=== PATIENT | male | born 1975 | race African-American/Black ===

== ENCOUNTER 2018-02-10 14:55 | Emergency (ER) | payer SELFPAY ==
--- NOTE | 2018-02-10 16:10 | RAD REPORT ---
EXAM DESCRIPTION: RAD - Knee Left 3 View - 02/10/2018 4:03 pm CLINICAL HISTORY: Left knee pain FINDINGS: No fracture or dislocation is seen. A large spur extends off of the anterior superior aspect of the patella
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
== END 2018-02-10 16:53 | disposition home or self-care (01) ==
LOC: ER 14:55
DX: T65.891A Toxic effect of other specified substances, accidental (unintentional), initial encounter (principal); H10.213 Acute toxic conjunctivitis, bilateral; S83.92XA Sprain of unspecified site of left knee, initial encounter; Y04.0XXA Assault by unarmed brawl or fight, initial encounter; Y92.9 Unspecified place or not applicable
CPT/HCPCS: 99283

== ENCOUNTER 2020-02-08 13:27 | Emergency (ER) | payer SELFPAY ==
--- NOTE | 2020-02-08 14:54 | ER ---
Nurse's Notes [facility] Name: Gonsalo Chambers Age: 44 yrs Sex: Male : 1975 Arrival Date: 02/08/2020 Time: 13:28 Bed 13 Private MD: Diagnosis: Disturbances in tooth eruption Presentation: 02/07 13:34 Chief complaint: Patient states: Right lower jaw tooth/gum pain for 3 days. No fever. ll1 Coronavirus screen: Patient denies a cough. Patient denies shortness of breath or difficulty breathing. Patient denies measured and/or subjective temperature greater than 100.4F prior to today's visit. Patient denies travel on a cruise ship or to a country the [facility] currently lists as an affected area. Patient denies contact with known and/or suspected case of COVID-19. Proceed with normal triage. Ebola Screen: Patient denies travel to an Ebola-affected area in the 21 days before illness onset. Initial Sepsis Screen: Does the patient meet any 2 criteria? No. Patient's initial sepsis screen is negative. Risk Assessment: Do you want to hurt yourself or someone else? Patient reports no desire to harm self or others. Onset of symptoms was February 06, 2020. 13:34 Method Of Arrival: Ambulatory ll1 13:34 Acuity: GOLDIE 5 ll1 Triage Assessment: 13:39 General: Appears uncomfortable, well groomed, Behavior is calm, cooperative. Pain: ks7 Complains of pain in mouth dental decay, R lower molar. EENT: Reports pain in right cheek, R lower molar dental decay. Historical: - Allergies: 13:35 No Known Allergies; ll1 - PSHx: 13:35 None; ll1 - Immunization history:: Adult Immunizations up to date. - Social history:: Smoking status: Patient reports the use of cigarette tobacco products, denies chronic smoking, but will smoke occasionally, Patient/guardian denies using alcohol, street drugs. Screenin:43 Abuse screen: Denies threats or abuse. Nutritional screening: No deficits noted. ks7 Tuberculosis screening: No symptoms or risk factors identified. Fall Risk None identified. Assessment: 13:43 General: Appears uncomfortable. EENT: Dental caries noted in lower right second molar ks7 (#31) and lower right third molar (#32). Vital Signs: 13:34 BP 123 / 75; Pulse 70; Resp 17; Temp 98.2; Pulse Ox 100% ; Pain 10/10; ll1 13:39 BP 123 / 75; Pulse 70; Resp 17; Temp 98.2; Pulse Ox 100% on R/A; Pain 8/10; ks7 15:14 Temp 97.9(TE); Pain 5/10; ks7 15:14 Temp 97.9; ks7 ED Course: 13:28 Patient arrived in ED. fj1 13:34 Annie Lockhart, RN is Primary Nurse. ks7 13:35 Triage completed. ll1 13:36 Arm band placed on Patient placed in an exam room, on a stretcher. ll1 13:43 Patient has correct armband on for positive identification. Bed in low position. Call ks7 light in reach. Side rails up X2. 13:43 No provider procedures requiring assistance completed. Patient did not have IV access ks7 during this emergency room visit. 13:56 [facility] snw 13:56 Bryn Hanson MD is Attending Physician. snw Administered Medications: 15:12 Drug: TORadol 30 mg Route: IM; Site: left deltoid; ks7 15:14 Follow up: Temp 97.9 ks7 15:12 Drug: Amoxicillin 500 mg Route: PO; ks7 15:14 Follow up: Temp 97.9 Temporal; Pain 5/10 Adult ks7 Outcome: 14:53 Discharge ordered by MD. snw 15:13 Discharged to home ambulatory. ks7 15:13 Condition: stable 15:13 Discharge instructions given to patient, Instructed on discharge instructions, medication usage. 15:13 Instructed on Demonstrated understanding of instructions, medications. 15:15 Patient left the ED. ks7 Signatures: Yulia Frey FNP-C CUTTING INSPECTOR-Csnw Mark Meier fj1 Antonia Mueller RN RN 1 Annie Lockhart, JOHN RN ks7
--- NOTE | 2020-02-08 14:54 | EDPHYS ---
Physician Documentation [facility] Name: Gonsalo Chambers Age: 44 yrs Sex: Male : 1975 Arrival Date: 02/08/2020 Time: 13:28 Bed 13 Private MD: ED Physician Bryn Hanson HPI: 02/07 16:59 This 44 yrs old Black Male presents to ER via Ambulatory with complaints of Toothache. snw 16:59 The patient presents with swelling. The problem is located in the lower right third snw molar. Onset: The symptoms/episode began/occurred gradually. Duration: The symptoms are continuous. Associated signs and symptoms: Pertinent positives: pain. Severity of symptoms: At their worst the symptoms were severe. The patient has not experienced similar symptoms in the past. The patient has not recently seen a physician. Historical: - Allergies: 13:35 No Known Allergies; ll1 - PSHx: 13:35 None; ll1 - Immunization history:: Adult Immunizations up to date. - Social history:: Smoking status: Patient reports the use of cigarette tobacco products, denies chronic smoking, but will smoke occasionally, Patient/guardian denies using alcohol, street drugs. ROS: 16:56 Constitutional: Negative for fever, chills, and weight loss, Eyes: Negative for injury, snw pain, redness, and discharge, Neck: Negative for injury, pain, and swelling, Cardiovascular: Negative for chest pain, palpitations, and edema, Respiratory: Negative for shortness of breath, cough, wheezing, and pleuritic chest pain, Abdomen/GI: Negative for abdominal pain, nausea, vomiting, diarrhea, and constipation, Back: Negative for injury and pain, : Negative for injury, bleeding, discharge, and swelling, MS/Extremity: Negative for injury and deformity, Skin: Negative for injury, rash, and discoloration, Neuro: Negative for headache, weakness, numbness, tingling, and seizure, Psych: Negative for depression, anxiety, suicide ideation, homicidal ideation, and hallucinations. 16:56 ENT: Positive for dental pain, of the lower right second molar and lower right third molar. Exam: 16:56 Constitutional: This is a well developed, well nourished patient who is awake, alert, snw and in no acute distress. Head/Face: Normocephalic, atraumatic. Eyes: Pupils equal round and reactive to light, extra-ocular motions intact. Lids and lashes normal. Conjunctiva and sclera are non-icteric and not injected. Cornea within normal limits. Periorbital areas with no swelling, redness, or edema. Neck: Trachea midline, no thyromegaly or masses palpated, and no cervical lymphadenopathy. Supple, full range of motion without nuchal rigidity, or vertebral point tenderness. No Meningismus. Chest/axilla: Normal chest wall appearance and motion. Nontender with no deformity. No lesions are appreciated. Cardiovascular: Regular rate and rhythm with a normal S1 and S2. No gallops, murmurs, or rubs. Normal PMI, no JVD. No pulse deficits. Respiratory: Lungs have equal breath sounds bilaterally, clear to auscultation and percussion. No rales, rhonchi or wheezes noted. No increased work of breathing, no retractions or nasal flaring. Abdomen/GI: Soft, non-tender, with normal bowel sounds. No distension or tympany. No guarding or rebound. No evidence of tenderness throughout. Back: No spinal tenderness. No costovertebral tenderness. Full range of motion. Skin: Warm, dry with normal turgor. Normal color with no rashes, no lesions, and no evidence of cellulitis. MS/ Extremity: Pulses equal, no cyanosis. Neurovascular intact. Full, normal range of motion. Neuro: Awake and alert, GCS 15, oriented to person, place, time, and situation. Cranial nerves II-XII grossly intact. Motor strength 5/5 in all extremities. Sensory grossly intact. Cerebellar exam normal. Normal gait. Psych: Awake, alert, with orientation to person, place and time. Behavior, mood, and affect are within normal limits. 16:56 ENT: External ear(s): are unremarkable, TM's: are normal, Nose: is normal, Mouth: is normal, Dental exam: pain, that is moderate, specifically in the lower right third molar (#32), tooth not completely erupted, + edema over tooth. Vital Signs: 13:34 BP 123 / 75; Pulse 70; Resp 17; Temp 98.2; Pulse Ox 100% ; Pain 10/10; ll1 13:39 BP 123 / 75; Pulse 70; Resp 17; Temp 98.2; Pulse Ox 100% on R/A; Pain 8/10; ks7 15:14 Temp 97.9(TE); Pain 5/10; ks7 15:14 Temp 97.9; ks7 MDM: 14:53 Patient medically screened. snw 16:58 Data reviewed: vital signs, nurses notes. Data interpreted: Pulse oximetry: on room air snw is 100 %. Interpretation: normal. Counseling: I had a detailed discussion with the patient and/or guardian regarding: the historical points, exam findings, and any diagnostic results supporting the discharge/admit diagnosis, the need for outpatient follow up, to return to the emergency department if symptoms worsen or persist or if there are any questions or concerns that arise at home. Special discussion: Based on the history and exam findings, there is no indication for further emergent testing or inpatient evaluation. I discussed with the patient/guardian the need to see the primary care provider for further evaluation of the symptoms. Administered Medications: 15:12 Drug: TORadol 30 mg Route: IM; Site: left deltoid; ks7 15:14 Follow up: Temp 97.9 ks7 15:12 Drug: Amoxicillin 500 mg Route: PO; ks7 15:14 Follow up: Temp 97.9 Temporal; Pain 5/10 Adult ks7 Disposition: 19:09 Co-signature as Attending Physician, Bryn Hanson MD I agree with the assessment and kdr plan of care. Disposition: 02/08/20 14:53 Discharged to Home. Impression: Disturbances in tooth eruption. - Condition is Stable. - Discharge Instructions: Dental Caries, Adult, Dental Pain, Impacted Molar, Diet and Dental Disease, Preventive Dental Care, Adult. - Prescriptions for Amoxicillin 500 mg Oral Capsule - take 1 capsule by ORAL route every 8 hours for 10 days; 30 tablet. Mobic 7.5 mg Oral Tablet - take 1 tablet by ORAL route once daily take with food; 20 tablet. - Medication Reconciliation Form, Thank You Letter, Antibiotic Education, Prescription Opioid Use form. - Follow up: Emergency Department; When: As needed; Reason: Worsening of condition. Follow up: Private Physician; When: 1 - 2 days; Reason: Recheck today's complaints, Continuance of care, Re-evaluation by your physician. Signatures: Bryn Hanson MD MD kdr Waters, Shelly, CLASSIFIED ADVERTISING MANAGER-C CLASSIFIED ADVERTISING MANAGER-Antonia Oviedo, RN RN ll1 Annie Lockhart RN RN ks7 Corrections: (The following items were deleted from the chart) 15:15 14:53 02/08/2020 14:53 Discharged to Home. Impression: Disturbances in tooth eruption. ks7 Condition is Stable. Forms are Medication Reconciliation Form, Thank You Letter, Antibiotic Education, Prescription Opioid Use. Follow up: Emergency Department; When: As needed; Reason: Worsening of condition. Follow up: Private Physician; When: 1 - 2 days; Reason: Recheck today's complaints, Continuance of care, Re-evaluation by your physician. snw
[2020-02-08] MEDS ORDERED: AMOXICILLIN TRIHYDR 250 MG CAP ONE (15:14)
[2020-02-08] MEDS ORDERED: KETOROLAC 30 MG/ML INJ ONE (15:14)
[2020-02-08 15:20] VITALS: BP 123/75; O2SAT 100
[2020-02-08 15:23] VITALS: TEMP 97.9
== END 2020-02-08 15:15 | disposition home or self-care (01) ==
LOC: ER 13:27
DX: K00.6 Disturbances in tooth eruption (principal); Z72.0 Tobacco use
CPT/HCPCS: 96372; 99283

== ENCOUNTER 2021-01-10 10:18 | Emergency (ER) | payer SELFPAY ==
--- NOTE | 2021-01-10 10:53 | ER ---
Nurse's Notes [facility] Name: Gonsalo Chambers Age: 45 yrs Sex: Male : 1975 Arrival Date: 01/10/2021 Time: 10:21 Bed 8 Private MD: Diagnosis: Dental caries Presentation: 01/10 10:30 Chief complaint: Left upper molar pain that radiates to jaw and face x 21 days. hb Coronavirus screen: At this time, the client does not indicate any symptoms associated with coronavirus-19. Ebola Screen: No symptoms or risks identified at this time. Initial Sepsis Screen: Does the patient meet any 2 criteria? No. Patient's initial sepsis screen is negative. Does the patient have a suspected source of infection? No. Patient's initial sepsis screen is negative. Risk Assessment: Do you want to hurt yourself or someone else? Patient reports no desire to harm self or others. Onset of symptoms was January 09, 2021. 10:30 Method Of Arrival: Ambulatory hb 10:30 Acuity: GOLDIE 4 hb Historical: - Allergies: 10:31 No Known Allergies; hb - Home Meds: 10:31 None [Active]; hb - PMHx: 10:31 Asthma; hb - PSHx: 10:31 None; hb - Immunization history:: Client reports having NOT received the Covid vaccine. - Family history:: not pertinent. - Social history:: Smoking status: unknown. Screenin:09 Abuse screen: Denies threats or abuse. Denies injuries from another. Nutritional ph screening: No deficits noted. Tuberculosis screening: No symptoms or risk factors identified. Fall Risk None identified. Assessment: 11:07 General: Appears in no apparent distress. uncomfortable, well groomed, Behavior is ph calm, cooperative, appropriate for age. Pain: Complains of pain in left zygomatic area. Neuro: Level of Consciousness is awake, alert, obeys commands, Oriented to person, place, time, situation. Cardiovascular: Capillary refill < 3 seconds in bilateral fingers Patient's skin is warm and dry. Respiratory: Airway is patent Respiratory effort is even, unlabored, Respiratory pattern is regular, symmetrical. EENT: Poor dentition noted. Derm: Skin is intact, Skin is pink, warm \T\ dry. Musculoskeletal: Circulation, motion, and sensation intact. Range of motion: intact in all extremities. 11:10 Reassessment: Pt provided w/ information about [facility] for follow ph up. Vital Signs: 10:30 BP 128 / 77; Pulse 63; Resp 16; Temp 97.7; Pulse Ox 100% on R/A; Pain 10/10; hb ED Course: 10:21 Patient arrived in ED. ds1 10:31 Triage completed. hb 10:31 Arm band placed on. hb 10:33 Tressa Plata MD is Attending Physician. ma2 10:35 Ara Hebert, RN is Primary Nurse. ph 11:09 Patient has correct armband on for positive identification. Bed in low position. Call ph light in reach. Side rails up X 1. Pulse ox on. NIBP on. Door closed. Noise minimized. 11:09 No provider procedures requiring assistance completed. Patient did not have IV access ph during this emergency room visit. Administered Medications: 10:50 Drug: Augmentin (Amoxicillin-Clavulanate) 875 mg Route: PO; ph 11:11 Follow up: Response: No adverse reaction ph 10:55 Drug: TORadol (ketorolac) 60 mg Route: IM; Site: right deltoid; ph 11:11 Follow up: Response: No adverse reaction ph Outcome: 10:52 Discharge ordered by . ma2 11:10 Discharged to home ambulatory. ph 11:10 Condition: good 11:10 Discharge instructions given to patient, Instructed on discharge instructions, follow up and referral plans. medication usage, Demonstrated understanding of instructions, follow-up care, medications, Prescriptions given X 2. 11:16 Patient left the ED. ph Signatures: Renetta Nath ds1 Ara Hebert RN RN Aide Donnelly RN RN Tressa Plata MD MD ma2
--- NOTE | 2021-01-10 10:53 | EDPHYS ---
Physician Documentation [facility] Name: Gonsalo Chambers Age: 45 yrs Sex: Male : 1975 Arrival Date: 01/10/2021 Time: 10:21 Bed 8 Private MD: ED Physician Tressa Plata HPI: 01/10 10:50 This 45 yrs old Black Male presents to ER via Ambulatory with complaints of Toothache. ma2 10:50 The patient presents with pain. Onset: The symptoms/episode began/occurred gradually, 2 ma2 day(s) ago. Associated signs and symptoms: Pertinent negatives: fever, nausea, swelling. Severity of symptoms: At their worst the symptoms were mild, in the emergency department the symptoms are unchanged. The patient has not experienced similar symptoms in the past. Historical: - Allergies: 10:31 No Known Allergies; hb - Home Meds: 10:31 None [Active]; hb - PMHx: 10:31 Asthma; hb - PSHx: 10:31 None; hb - Immunization history:: Client reports having NOT received the Covid vaccine. - Family history:: not pertinent. - Social history:: Smoking status: unknown. ROS: 10:50 All other systems are negative. ma2 Exam: 10:50 Constitutional: This is a well developed, well nourished patient who is awake, alert, ma2 and in no acute distress. Head/Face: Normocephalic, atraumatic. Eyes: Pupils equal round and reactive to light, extra-ocular motions intact. Lids and lashes normal. Conjunctiva and sclera are non-icteric and not injected. Cornea within normal limits. Periorbital areas with no swelling, redness, or edema. ENT: Nares patent. No nasal discharge, no septal abnormalities noted. Tympanic membranes are normal and external auditory canals are clear. Oropharynx with no redness, swelling, or masses, exudates, or evidence of obstruction, uvula midline. Mucous membranes moist. Neck: Trachea midline, no thyromegaly or masses palpated, and no cervical lymphadenopathy. Supple, full range of motion without nuchal rigidity, or vertebral point tenderness. No Meningismus. Chest/axilla: Normal chest wall appearance and motion. Nontender with no deformity. No lesions are appreciated. 10:50 ENT: Mouth: Dental exam: pain, dental caries and infection no abscess. Vital Signs: 10:30 BP 128 / 77; Pulse 63; Resp 16; Temp 97.7; Pulse Ox 100% on R/A; Pain 10/10; hb MDM: 10:33 Patient medically screened. ma2 10:50 Differential diagnosis: dental caries, gingivitis, pericoronitis, gingivostomatitis. ma2 Data reviewed: vital signs, nurses notes. Counseling: I had a detailed discussion with the patient and/or guardian regarding: the historical points, exam findings, and any diagnostic results supporting the discharge/admit diagnosis, the presence of at least one elevated blood pressure reading (>120/80) during this emergency department visit, the need for outpatient follow up. Response to treatment: the patient's symptoms have markedly improved after treatment. Administered Medications: 10:50 Drug: Augmentin (Amoxicillin-Clavulanate) 875 mg Route: PO; ph 11:11 Follow up: Response: No adverse reaction ph 10:55 Drug: TORadol (ketorolac) 60 mg Route: IM; Site: right deltoid; ph 11:11 Follow up: Response: No adverse reaction ph Disposition: 01/10/21 10:52 Discharged to Home. Impression: Dental caries. - Condition is Stable. - Discharge Instructions: Dental Pain. - Prescriptions for Augmentin 875- 125 mg Oral Tablet - take 1 tablet by ORAL route every 12 hours for 10 days; 20 tablet. Diclofenac Sodium 75 mg Oral Tablet Sustained Release - take 1 tablet by ORAL route 2 times per day; 30 tablet. - Medication Reconciliation Form, Thank You Letter, Antibiotic Education, Prescription Opioid Use form. - Follow up: Private Physician; When: Tomorrow; Reason: Continuance of care. Signatures: Ara Hebert RN RN ph Aide Donnelly RN RN Tressa Plata MD MD ma2 Corrections: (The following items were deleted from the chart) 11:16 10:52 01/10/2021 10:52 Discharged to Home. Impression: Dental caries. Condition is ph Stable. Prescriptions for Augmentin 875-125 mg Oral Tablet - take 1 tablet by ORAL route every 12 hours for 10 days; 20 tablet, Diclofenac Sodium 75 mg Oral Tablet Sustained Release - take 1 tablet by ORAL route 2 times per day; 30 tablet. and Forms are Medication Reconciliation Form, Thank You Letter, Antibiotic Education, Prescription Opioid Use. Follow up: Private Physician; When: Tomorrow; Reason: Continuance of care. ma2
[2021-01-10] MEDS ORDERED: KETOROLAC 30 MG/ML INJ ONE (11:13)
[2021-01-10] MEDS ORDERED: AMOX/K CLAV 875 MG TAB ONE (11:13)
[2021-01-10 11:23] VITALS: BP 128/77; TEMP 97.7; O2SAT 100
== END 2021-01-10 11:16 | disposition home or self-care (01) ==
LOC: ER 10:18
DX: K02.9 Dental caries, unspecified (principal)
CPT/HCPCS: 96372; 99283

== ENCOUNTER 2021-05-07 15:00 | Emergency (ER) | payer SELFPAY ==
--- NOTE | 2021-05-07 17:28 | EDPHYS ---
Physician Documentation [facility] Name: Gonsalo Chambers Age: 45 yrs Sex: Male : 1975 Arrival Date: 05/07/2021 Time: 15:03 Bed 12 Private MD: ED Physician Denton Negrete HPI: 05/07 17:22 This 45 yrs old Black Male presents to ER via Ambulatory with complaints of Toothache. favian 17:22 The patient presents with broken tooth/teeth, lost tooth/teeth, pain. The problem is favian located in the upper left second molar, upper left third molar, lower left third molar, lower left second molar and lower right third molar. Onset: The symptoms/episode began/occurred 3 day(s) ago. Duration: The symptoms are continuous, and are steadily getting worse. Modifying factors: The symptoms are alleviated by nothing, the symptoms are aggravated by nothing. Associated signs and symptoms: Pertinent positives: inability to eat, pain, redness in area. Severity of symptoms: At their worst the symptoms were moderate, in the emergency department the symptoms are unchanged. The patient has experienced similar episodes in the past, multiple times. Historical: - Allergies: 15:22 No Known Allergies; ap3 - Home Meds: 15:22 None [Active]; ap3 - PMHx: 15:22 Asthma; ap3 - Immunization history:: Client reports having NOT received the Covid vaccine. - Social history:: Smoking status: Patient reports the use of cigarette tobacco products, denies chronic smoking, but will smoke occasionally. - Family history:: not pertinent. ROS: 17:22 Constitutional: Negative for fever, chills, and weight loss, Eyes: Negative for injury, favian pain, redness, and discharge, ENT: Negative for injury, pain, and discharge, Neck: Negative for injury, pain, and swelling, Cardiovascular: Negative for chest pain, palpitations, and edema, Respiratory: Negative for shortness of breath, cough, wheezing, and pleuritic chest pain, Abdomen/GI: Negative for abdominal pain, nausea, vomiting, diarrhea, and constipation, Back: Negative for injury and pain, MS/Extremity: Negative for injury and deformity, Skin: Negative for injury, rash, and discoloration, Neuro: Negative for headache, weakness, numbness, tingling, and seizure, Psych: Negative for depression, anxiety, suicide ideation, homicidal ideation, and hallucinations, Allergy/Immunology: Negative for hives, rash, and allergies, Endocrine: Negative for neck swelling, polydipsia, polyuria, polyphagia, and marked weight changes. 17:22 : Positive for 17:22 : 17:22 : Negative for injury or acute deformity, urinary symptoms, urinary frequency. Exam: 17:24 Constitutional: This is a well developed, well nourished patient who is awake, alert, favian and in no acute distress. Head/Face: Normocephalic, atraumatic. Eyes: Pupils equal round and reactive to light, extra-ocular motions intact. Lids and lashes normal. Conjunctiva and sclera are non-icteric and not injected. Cornea within normal limits. Periorbital areas with no swelling, redness, or edema. Neck: Trachea midline, no thyromegaly or masses palpated, and no cervical lymphadenopathy. Supple, full range of motion without nuchal rigidity, or vertebral point tenderness. No Meningismus. Chest/axilla: Normal chest wall appearance and motion. Nontender with no deformity. No lesions are appreciated. Cardiovascular: Regular rate and rhythm with a normal S1 and S2. No gallops, murmurs, or rubs. Normal PMI, no JVD. No pulse deficits. Respiratory: Lungs have equal breath sounds bilaterally, clear to auscultation and percussion. No rales, rhonchi or wheezes noted. No increased work of breathing, no retractions or nasal flaring. Abdomen/GI: Soft, non-tender, with normal bowel sounds. No distension or tympany. No guarding or rebound. No evidence of tenderness throughout. Back: No spinal tenderness. No costovertebral tenderness. Full range of motion. Skin: Warm, dry with normal turgor. Normal color with no rashes, no lesions, and no evidence of cellulitis. MS/ Extremity: Pulses equal, no cyanosis. Neurovascular intact. Full, normal range of motion. Neuro: Awake and alert, GCS 15, oriented to person, place, time, and situation. Cranial nerves II-XII grossly intact. Motor strength 5/5 in all extremities. Sensory grossly intact. Cerebellar exam normal. Normal gait. Psych: Awake, alert, with orientation to person, place and time. Behavior, mood, and affect are within normal limits. 17:24 ENT: Mouth: Lips: normal, Oral mucosa: moist, Gums: noted to have cellulitis, reddened, on the upper left second molar, upper left third molar, lower left third molar, lower left second molar, lower right second molar and lower right third molar, Tongue: is normal, abscess, is not appreciated, drooling, is not appreciated, Posterior pharynx: is normal, no acute changes, Airway: normal, no evidence of obstruction, Dental exam: dental caries, fractured teeth are noted, diffusely, pain, that is moderate, Voice: no acute changes. Vital Signs: 15:20 BP 151 / 92; Pulse 53; Resp 17; Temp 97.8; Pulse Ox 100% on R/A; Weight 92.99 kg; ap3 Height 5 ft. 11 in. (180.34 cm); 15:20 Body Mass Index 28.59 (92.99 kg, 180.34 cm) ap3 MDM: 16:42 Patient medically screened. favian 17:26 Differential diagnosis: dental caries, gingivitis, dental abscess, pericoronitis. Data favian reviewed: vital signs, nurses notes. Data interpreted: library monitor: rate is 53 beats/min, rhythm is regular, Pulse oximetry: on room air is 100 %. Counseling: I had a detailed discussion with the patient and/or guardian regarding: the historical points, exam findings, and any diagnostic results supporting the discharge/admit diagnosis, lab results, radiology results, the need for outpatient follow up, for definitive care, a dentist, an oral maxilofacial specialist. Administered Medications: 17:29 Drug: Amoxicillin 500 mg Route: PO; ll1 17:39 Follow up: Response: No adverse reaction ll1 17:29 Drug: [place] (HYDROcodone-acetaminophen) 10 mg-325 mg 1 tabs {Note: rass 0.} Route: PO; ll1 17:39 Follow up: Response: No adverse reaction ll1 Disposition Summary: 05/07/21 17:27 Discharge Ordered Location: Home favian Problem: new faivan Symptoms: have improved favian Condition: Stable favian Diagnosis - Dental root caries favian - Dental caries, unspecified favian - Acute pain, not elsewhere classified - dental favian Followup: favian - With: Private Physician - When: 2 - 3 days - Reason: Recheck today's complaints, Continuance of care, Re-evaluation by your physician Followup: favian - With: Emmett Mayorga DDS - When: 2 - 3 days - Reason: Recheck today's complaints, Re-evaluation by your physician Discharge Instructions: - Discharge Summary Sheet favian - Dental Caries, Adult favian - Dental Pain favian - Dental Pain, [id number] favian - Diet and Dental Disease favian - Dental Caries, Adult, [id number] [facility] Forms: - Medication Reconciliation Form [facility] - Thank You Letter favian - Antibiotic Education favian - Prescription Opioid Use [facility] - Work release form ll1 Prescriptions: - Amoxicillin 500 mg Oral Capsule - take 1 capsule by ORAL route every 8 hours for 10 days; 30 tablet; Refills: 0, [facility] Product Selection Permitted - Ibuprofen 600 mg Oral Tablet - take 1 tablet by ORAL route every 6 hours As needed take with food; 30 tablet; [facility] Refills: 0, Product Selection Permitted Signatures: Denton Negrete MD MD cha Prokisch, Amanda RN RN ap3 Antonia Mueller RN RN ll1
--- NOTE | 2021-05-07 17:28 | ER ---
Nurse's Notes [facility] Name: Gonsalo Chambers Age: 45 yrs Sex: Male : 1975 Arrival Date: 05/07/2021 Time: 15:03 Bed 12 Private MD: Diagnosis: Dental root caries;Dental caries, unspecified;Acute pain, not elsewhere classified-dental Presentation: 05/07 15:20 Chief complaint: Patient states: he began having pain in one of his left upper molars ap3 yesterday 05/06/2021. Patient states that he took some left over antibiotics, and ibuprofen yesterday as well. Coronavirus screen: At this time, the client does not indicate any symptoms associated with coronavirus-19. Ebola Screen: No symptoms or risks identified at this time. Initial Sepsis Screen: Does the patient meet any 2 criteria? No. Patient's initial sepsis screen is negative. Does the patient have a suspected source of infection? Yes: Other: tooth. Risk Assessment: Do you want to hurt yourself or someone else? Patient reports desire/thoughts of hurting themselves or someone else. Provider notified. Onset of symptoms was May 06, 2021. 15:20 Method Of Arrival: Ambulatory ap3 15:20 Acuity: GOLDIE 4 ap3 Triage Assessment: 15:23 General: Appears uncomfortable, Behavior is cooperative. Pain: Complains of pain in ap3 left buccal mucosa Pain currently is 10 out of 10 on a pain scale. Pain began suddenly, 1 day ago. EENT: Poor dentition noted. Reports pain in left buccal mucosa. Neuro: Level of Consciousness is awake, alert, obeys commands, Oriented to person, place, time, situation, Appropriate for age Moves all extremities. Gait is steady, Speech is normal. Cardiovascular: Patient's skin is warm and dry. Respiratory: Airway is patent. Historical: - Allergies: 15:22 No Known Allergies; ap3 - Home Meds: 15:22 None [Active]; ap3 - PMHx: 15:22 Asthma; ap3 - Immunization history:: Client reports having NOT received the Covid vaccine. - Social history:: Smoking status: Patient reports the use of cigarette tobacco products, denies chronic smoking, but will smoke occasionally. - Family history:: not pertinent. Screenin:41 Abuse screen: Denies threats or abuse. Nutritional screening: No deficits noted. ll1 Tuberculosis screening: No symptoms or risk factors identified. Fall Risk None identified. Total Larson Fall Scale indicates No Risk (0-24 pts). Assessment: 16:41 Reassessment: No changes from previously documented assessment. Patient and/or family ll1 updated on plan of care and expected duration. Pain level reassessed. Patient is alert, oriented x 3, equal unlabored respirations, skin warm/dry/pink. 17:38 Reassessment: No changes from previously documented assessment. Patient and/or family ll1 updated on plan of care and expected duration. Pain level reassessed. Patient is alert, oriented x 3, equal unlabored respirations, skin warm/dry/pink. Vital Signs: 15:20 BP 151 / 92; Pulse 53; Resp 17; Temp 97.8; Pulse Ox 100% on R/A; Weight 92.99 kg; ap3 Height 5 ft. 11 in. (180.34 cm); 15:20 Body Mass Index 28.59 (92.99 kg, 180.34 cm) ap3 ED Course: 15:03 Patient arrived in ED. mr 15:22 Triage completed. ap3 15:24 Arm band placed on right wrist. ap3 16:41 Patient placed in an exam room, on a stretcher. ll1 16:41 Patient has correct armband on for positive identification. Bed in low position. Call ll1 light in reach. Side rails up X 1. Cardiac monitoring not applicable on this patient. 16:41 No provider procedures requiring assistance completed. ll1 16:42 Denton Negrete MD is Attending Physician. favian 17:04 Antonia Mueller RN is Primary Nurse. ll1 17:27 Emmett Mayorga DDS is Referral Physician. favian 17:39 Patient did not have IV access during this emergency room visit. ll1 Administered Medications: 17:29 Drug: Amoxicillin 500 mg Route: PO; ll1 17:39 Follow up: Response: No adverse reaction ll1 17:29 Drug: [place] (HYDROcodone-acetaminophen) 10 mg-325 mg 1 tabs {Note: rass 0.} Route: PO; ll1 17:39 Follow up: Response: No adverse reaction ll1 Outcome: 17:27 Discharge ordered by . favian 17:39 Discharged to home ambulatory. ll1 17:39 Condition: stable 17:39 Discharge instructions given to patient, Instructed on discharge instructions, follow up and referral plans. medication usage, Demonstrated understanding of instructions, follow-up care, medications, Prescriptions given X 2. 17:40 Patient left the ED. ll1 Signatures: Denton Negrete MD MD cha Rivera, Mary mr Leigha Walton RN RN ap3 Antonia Mueller RN RN ll1
[2021-05-07 17:45] VITALS: BP 151/92; TEMP 97.8; O2SAT 100
[2021-05-07] MEDS ORDERED: HYDROCODONE/APAP 10/325 TAB ONE (17:50)
[2021-05-07] MEDS ORDERED: AMOXICILLIN TRIHYDR 250 MG CAP ONE (17:51)
== END 2021-05-07 17:40 | disposition home or self-care (01) ==
LOC: ER 15:00
DX: K02.7 Dental root caries (principal); K12.2 Cellulitis and abscess of mouth; F17.210 Nicotine dependence, cigarettes, uncomplicated
CPT/HCPCS: 99283